=== PATIENT | female | born 1960 | race Caucasian/White ===

== ENCOUNTER 2017-07-10 08:31 | Day surgery (SDC) | payer BC ==
[~2017-07-10 08:31] MED LIST: HYDACE5 PO; OMEP20ER PO
[2017-07-10 11:06] LABS: Performing Lab VERACYTE; Test Name FNA
== END 2017-07-10 22:43 | disposition home or self-care (01) ==
LOC: US 08:31
PROVIDERS: Nurse Practitioner Family
PROC: 0GBH3ZX Excision of Right Thyroid Gland Lobe, Percutaneous Approach, Diagnostic (ICD-10-PCS; principal; 2017-07-10)
DX: D44.0 Neoplasm of uncertain behavior of thyroid gland (principal)
CPT/HCPCS: 10022; 76942

== ENCOUNTER → 2017-08-13 | Outpatient (CLI) | payer BC | END | disposition home or self-care (01) | LOC: LAB 11:30 → LAB SHORT 11:30 | DX: R30.0 Dysuria (principal) | CPT/HCPCS: 87077; 87086; 87186 ==

== ENCOUNTER 2017-08-23 02:44 | Day surgery (SDC) | payer BC | END 2017-08-23 23:03 | disposition home or self-care (01) | LOC: MOI US 02:44 | PROC: 0HBT3ZX Excision of Right Breast, Percutaneous Approach, Diagnostic (ICD-10-PCS; principal; 2017-08-23) | DX: D24.1 Benign neoplasm of right breast (principal) | CPT/HCPCS: 19083; 77065; 88305; A4648; G0279 ==

== ENCOUNTER → 2017-11-14 | Outpatient (CLI) | payer BC | END | disposition home or self-care (01) | LOC: LAB 16:44 → LAB SHORT 16:44 | DX: N39.0 Urinary tract infection, site not specified (principal) | CPT/HCPCS: 87077; 87086; 87186 ==

== ENCOUNTER 2017-12-20 08:12 | Day surgery (SDC) | payer BC ==
[~2017-12-20] VITALS: Ht 177.8 cm; Wt 74.2 kg
== END 2017-12-20 10:21 | disposition home or self-care (01) ==
LOC: ORSCSDS 08:12
PROVIDERS: Internal Medicine Gastroenterology
PROC: 0DJD8ZZ Inspection of Lower Intestinal Tract, Via Natural or Artificial Opening Endoscopic (ICD-10-PCS; principal; 2017-12-20 09:30)
DX: Z12.11 Encounter for screening for malignant neoplasm of colon (principal); Z83.71 Family history of colonic polyps; K64.8 Other hemorrhoids
CPT/HCPCS: J7120

== ENCOUNTER → 2018-03-10 | Outpatient (CLI) | payer BC | END | disposition home or self-care (01) | LOC: LAB SHORT 16:00 → LAB 16:00 | DX: R30.0 Dysuria (principal) | CPT/HCPCS: 87077; 87086; 87186 ==

== ENCOUNTER → 2018-04-09 | Outpatient (CLI) | payer BC | LOC: LAB 20:10 → LAB SHORT 20:10 | DX: R30.0 Dysuria (principal) | CPT/HCPCS: 87077; 87086; 87186 ==

== ENCOUNTER → 2019-04-30 | Outpatient (CLI) | payer BC | END | disposition home or self-care (01) | LOC: LAB 13:02 → LAB SHORT 13:02 | DX: N39.0 Urinary tract infection, site not specified (principal) | CPT/HCPCS: 87077; 87086; 87186 ==

== ENCOUNTER → 2023-08-11 | Outpatient (CLI) | payer BC ==
[~2023-08-11] MED LIST changes: +CEPH500 PO; +SULTRIDS PO
== END ==
LOC: LAB 12:53 → LAB SHORT 12:53
DX: R30.0 Dysuria (principal)
CPT/HCPCS: 87077; 87086; 87186

== ENCOUNTER → 2023-11-15 | Outpatient (CLI) | payer BC | END | disposition home or self-care (01) | LOC: LAB SHORT 18:54 → LAB 18:54 | DX: R30.0 Dysuria (principal); R35.0 Frequency of micturition; R31.9 Hematuria, unspecified | CPT/HCPCS: 87077; 87086; 87186 ==

== ENCOUNTER → 2024-04-13 | Outpatient (CLI) | payer BC ==
[2024-04-13 18:55] LABS: Hematocrit 41.4 % (33.0-51.0); Hemoglobin 14.6 g/dL (11.5-16.0); Mean Corpuscular HGB 32.4 pg (26.0-34.0); Mean Corpuscular HGB Conc 35.3 g/dL (31.5-36.5); Mean Corpuscular Volume 92 fL (80-100); Mean Platelet Volume 11.1 fL (9.1-12.4); Platelet Count 271 K/mm3 (150-400); RDW Coefficient Variation 11.5 % (11.7-14.2); RDW Standard Deviation 39.3 fL (35.1-46.3); Red Blood Cell Count 4.51 M/mm3 (3.80-5.20)
[2024-04-13 19:19] LABS: BASOPHILS PERCENT MAN 0 % (0-2); EOSINOPHILS PERCENT MAN 0 % (0-6); LYMPHOCYTES ABSOLUTE MAN 0.44 K/mm3 (0.84-5.20); LYMPHOCYTES PERCENT MAN 5 % (21-46); MONOCYTES ABSOLUTE MAN 0.26 K/mm3 (0.16-1.47); MONOCYTES PERCENT MAN 3 % (4-13); NEUTROPHILS ABSOLUTE MAN 8.09 K/mm3 (1.96-9.15); SEG NEUTROPHILS PERCENT MAN 92 % (41-73); TOTAL CELLS COUNTED 100
[2024-04-13 20:09] LABS: Albumin, Blood 3.7 g/dL (3.4-5.0); Albumin/Globulin Ratio 1.1 (0.8-1.8); Bilirubin, Total 0.4 mg/dL (0.1-1.0); Bun/Creatinine Ratio 19.2 (12.0-20.0); Calcium, Blood 9.4 mg/dL (8.5-10.1); Creatinine, Blood 0.78 mg/dL (0.40-1.00); Globulin, Blood 3.4 g/dL (2.2-4.0); Phosphorus, Blood 2.7 mg/dL (2.5-4.9); Potassium, Blood 3.8 mmol/L (3.5-5.5); Total Protein, Blood 7.1 g/dL (6.4-8.2)
== END ==
LOC: LAB 15:35 → LAB SHORT 15:35
PROVIDERS: Nurse Practitioner
DX: R11.0 Nausea (principal); U07.1 COVID-19; R42 Dizziness and giddiness; N30.00 Acute cystitis without hematuria; R11.2 Nausea with vomiting, unspecified
CPT/HCPCS: 80053; 84100; 85007; 85027; 87077; 87086; 87186

== ENCOUNTER 2025-01-18 15:09 | Emergency (ER) | payer BC ==
[~2025-01-18] VITALS: Ht 177.8 cm; Wt 72.6 kg
[2025-01-18] MEDS ORDERED: NS 1,000 ML IV SCH (15:35)
[2025-01-18] MEDS ORDERED: Ketorolac Tromethamine 15mg Vial IV ONE (15:35)
[2025-01-18 15:50] LABS: BASOPHILS ABSOLUTE AUTO 0.04 K/mm3 (0.00-0.23); BASOPHILS PERCENT AUTO 1 % (0-2); EOSINOPHILS ABSOLUTE AUTO 0.07 K/mm3 (0.00-0.68); EOSINOPHILS PERCENT AUTO 1 % (0-6); Hematocrit 42.0 % (33.0-51.0); Hemoglobin 14.3 g/dL (11.5-16.0); IMMATURE GRAN ABSOLUTE AUTO 0.01 K/mm3 (0.00-0.10); IMMATURE GRAN PERCENT AUTO 0 % (0-1); LYMPHOCYTES ABSOLUTE AUTO 1.92 K/mm3 (0.84-5.20); LYMPHOCYTES PERCENT AUTO 30 % (21-46); MONOCYTES ABSOLUTE AUTO 0.47 K/mm3 (0.16-1.47); MONOCYTES PERCENT AUTO 7 % (4-13); Mean Corpuscular HGB Conc 34.0 g/dL (31.5-36.5); Mean Corpuscular Volume 93 fL (80-100); NEUTROPHILS ABSOLUTE AUTO 3.99 K/mm3 (1.96-9.15); NEUTROPHILS PERCENT AUTO 61 % (41-73); NRBC ABSOLUTE 0.00 K/mm3 (0.00-0.02); NRBC Auto 0.0 /100 WBC (0.0-0.2); Platelet Count 239 K/mm3 (150-400); RDW Coefficient Variation 12.1 % (11.7-14.2); RDW Standard Deviation 41.8 fL (35.1-46.3)
[2025-01-18 16:27] LABS: Alanine Aminotransfer (ALT/SGP 23.0 U/L (12-78); Albumin, Blood 3.8 g/dL (3.4-5.0); Albumin/Globulin Ratio 1.3 (0.8-1.8); Anion Gap 10.0 mmol/L (3-11); Aspartate Aminotrans (AST/SGOT 19.0 U/L (12-37); Bilirubin, Total 0.5 mg/dL (0.1-1.0); Blood Urea Nitrogen 8.0 mg/dL (8-24); CO2, Blood 26.0 mmol/L (21-32); Calcium, Blood 9.3 mg/dL (8.5-10.1); Chloride, Blood 108.0 mmol/L (98-108); Creatinine, Blood 0.81 mg/dL (0.40-1.00); Globulin, Blood 3.0 g/dL (2.2-4.0); Glucose, Blood 93.0 mg/dL (70-99); Potassium, Blood 3.7 mmol/L (3.5-5.5); Sodium, Blood 140.0 mmol/L (136-145); Total Protein, Blood 6.8 g/dL (6.4-8.2)
[2025-01-18 17:27] LABS: Source, Urine Clean Catch
[2025-01-18 17:39] LABS: Bilirubin, Urine Neg (Neg); Glucose Qualitative, Urine Neg (Neg); Ketones, Urine Neg (Neg); Leukocyte Esterase, Urine 1+ (Neg); Protein, Urine Neg (Neg); Specific Gravity, Urine 1.005 (1.003-1.022); Urobilinogen, Urine NORM (Normal)
[2025-01-18 17:49] LABS: Color, Urine Pale Yellow (P-Yellow)
[2025-01-18 17:50] LABS: Red Blood Cells, Urine 0-2 /hpf (0-2); White Blood Cells, Urine 0-2 /hpf (0-5)
[2025-01-18] MEDS ORDERED: Robaxin750 MG PO (18:55)
[2025-01-18] MEDS ORDERED: Lidocaine 4% 1 Patch TOP ONE (18:55)
[2025-01-18] MEDS ORDERED: ASPERFLEX1 EACH TOP (18:55)
[2025-01-18 19:16] VITALS: BP 149/78
== END 2025-01-18 19:18 | disposition home or self-care (01) ==
LOC: ER 15:09
PROVIDERS: Student in an Organized Health Care Education/Training Program
DX: M51.369 Other intervertebral disc degeneration, lumbar region without mention of lumbar back pain or lower extremity pain (principal); I10 Essential (primary) hypertension; Z88.1 Allergy status to other antibiotic agents; Z88.8 Allergy status to other drugs, medicaments and biological substances
CPT/HCPCS: 74176; 80053; 81001; 83690; 85025; 87086; 96361; 96374; 99284-25; A9270; J1885; J7030